=== PATIENT | male | born 1990 | race Caucasian/White ===

== ENCOUNTER 2017-01-22 22:27 | Emergency (ER) | payer MEDICAID ==
[~2017-01-22] VITALS: Ht 175.3 cm; Wt 77.1 kg
[~2017-01-22 22:27] MED LIST: AMOXIL500 MG PO; BACTRIM DS 8001 TAB PO; CEPHALEXIN MON500 MG PO; CIPRO 500MG TA500 MG PO; FLAGYL 500MG.500 MG PO; HYDROCODONE1 TABLET PO; IBU-8800 MG PO; KEFLEX 500MG.500 MG PO; LORTAB 5/500 501 TAB PO; MEDROL 4MG. DOSE4 MG PO; NOMEDS; NOMEDS *; PERCOCET 325 MG1 TA3 PO; PHENERGAN 25MG.25 M1 PO; PROVENTIL0.09 MG/AC IH; SULFAMETHOXAZOL1 TA6 PO; TRAMADOL 50MG T50 MG PO; ULTRAM50 MG PO; VICODIN 5/500 T1 TAB PO; ZITHROMAX TRI-500 MG PO
[2017-01-22 23:09] LABS: HEMOGLOBIN 14.1 g/dL (14.1-18.0); LYMPH # 1.3 K/mm3 (0.7-4.5); LYMPH % 17.6 % (10-50)
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
--- OUTSIDE RECORDS SUMMARY | 2017-01-22 23:20 | External Medical Summary Rpt ---
Author Author [employer], [employer] Organization [employer] Address Unknown Phone Unavailable
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
--- OUTSIDE RECORDS SUMMARY | 2017-01-22 23:20 | External Medical Summary Rpt ---
Demographics Preferred Language Senegalese Marital Status Unknown Taoist Affiliation Unknown Race Unknown Ethnic Group Unknown Author Author , Organization [employer] Address Unknown Phone Unavailable Purpose Continuity of Care Document - through 2016 Immunization No patient found.
--- OUTSIDE RECORDS SUMMARY | 2017-01-22 23:20 | External Medical Summary Rpt ---
Demographics Preferred Language Guamanian Marital Status Unknown Druze Affiliation Unknown Race Unknown Ethnic Group Unknown Author Author , Organization [employer] Address Unknown Phone Unavailable Purpose Continuity of Care Document - through 2016 Immunization No patient found.
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
[2017-01-22 23:29] LABS: STREP SCREEN (RAPID) NEGATIVE
--- NOTE | 2017-01-22 23:43 | Emergency Room Report ---
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 Y Clinical Suspician of Infection? Y Mental Status: 1 - Regular (Normal Baseline) Sepsis Risk:Severe Sepsis Risk Have you (or family members/close friends) recently traveled outside the [place]? N If Yes, where/when: Have you had exposure to infectious disease within the past month? N TB? Other? Specify: Source patient, RN notes reviewed, old records Exam Limitations no limitations Comment prod cough over the last few days with no rash Cardiac Chest Pain Chest pain indicative of cardiac No Timing/Duration this evening Severity moderate ALLERGIES Coded Allergies: No Known Allergies (01/22/17) Home Medications Reported Medications No Home Medications (NO HOME MEDICATIONS) History Medical History General CAD? No Angina: No NE: No Hypertension? No Hyperlipidemia? No CHF? No DVT? No PE? No COPD? No Asthma? Yes Anemia? No GERD? No Gastric ulcers? No GI Bleed? No Hernia? No Thyroid Problems? No Hypothyroidism? No CVA? No Seizures? No Diabetes? No Insulin Dependent: No Insulin Pump: No Home FSBS? No Renal Insuffiency? No End Stage Renal Disease? No UTI? No Stones? No BPH? No GB Disease: No Nephritic Syndrome? No Asplenia? No Hepatitis? No Sickle Cell Disease? No Arthritis? No Migraines? No Cataracts? No Glaucoma? No MRSA? Yes HIV? No TB? No Anxiety? No Depression? Yes Cancer? No Immunization Hx DT/Tetanus UNKNOWN Flu UNKNOWN Pneumonia NEVER Surgical Hx Previous Surgery?Y WISDOM TEETH HAND SURGERY I&D LEFT KNEE-LOCAL Family History Family Hx Diabetes Yes CAD Yes Hypertension Yes Hyperlipidemia No Cancer No TB No Social History Smoking Hx Smoker: Current Every Day Smoker Tobacco: Yes Type Cigarettes Packs/day < 1 Pack Alcohol Alcohol: Yes Drugs none Review of Systems All Other Systems Reviewed and Negative Constitutional denies fever Eyes denies drainage ENT throat pain. denies: ear discharge, epistaxis, throat swelling. Respiratory see HPI, cough, denies shortness of breath, denies wheezing Cardiovascular denies chest pain, denies syncope Gastrointestinal denies abdominal pain, denies diarrhea, denies vomiting Genitourinary denies: dysuria, frequency, hesitancy, hematuria. Musculoskeletal denies back pain, denies joint pain, denies joint swelling, denies neck pain Skin denies rash Psychiatric/Neurological denies headache, denies seizure Physical Exam Vital Signs Vital Signs Date Time Temp Pulse Resp B/P Pulse O2 O2 Flow FiO2 Ox Delivery Rate 01/22 2231 102.5 77 24 128/64 98 - WBC >12,000 or <4,000 or 10% bands? 2 or more SIRS Criteria Met? B/P:128/64 MAP:85 Creatinine >2.0? UA output<0.5ml/kg/hr for 2 hrs? Platelet count >100,000? Lactate >2.0mmol/1? INR >1.2 or PTT > than 60 sec? Evidence of Organ Dysfunction? Provider documented clinical suspician of infection? Y Sepsis Criteria Count: 2 Sepsis Risk: Severe Sepsis Risk General Appearance no apparent distress Eye Exam - bilateral eye PERRL, bilateral eye EOMI Ear, Nose, Throat pharyngeal erythema Neck supple Respiratory Status No: respiratory distress. Lung Sounds bilateral: lungs clear. 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 No Results/Orders Laboratory Tests 01/22/172247: Lactic Acid 0.4 01/22/172247: Sodium 138, Potassium 3.1 L, Chloride 102, Carbon Dioxide 26, BUN 18, Creatinine 1.1, Estimated Creat Clear 110, Estimated GFR (MDRD) 80, Glucose 112 H, Calcium 8.4 L, Total Bilirubin 0.4, AST 15, ALT 20, Alkaline Phosphatase 74, Total Protein 7.3, Albumin 3.9, Globulin 3.4 H, Albumin/Globulin Ratio 1.1, WBC 7.4, RBC 4.69, Hgb 14.1, Hct 41.8 L, MCV 89.1, RDW 12.6, Plt Count 115 L, MPV 7.9, Gran % 74.5, Gran # 5.5, Lymphocytes % 17.6, Monocytes % 6.9, Eosinophils % 0.3, Basophils % 0.7, Lymphocytes # 1.3, Monocytes # 0.5, Eosinophils # 0.0, Basophils # 0.1, PUBS MCHC 33.8, MCH 30.2 01/22/171: Influenza Type A Ag NOT DETECTED, Influenza Type B Ag NOT DETECTED Current Medication Orders Sig/Obed Start time Last Medication Dose Route Stop Time Status Admin Benzonatate 0 .STK-MED ONE 01/22 234 DC PO Acetaminophen/ 1 JAZMYNE ONCE ONE 01/22 234 DC Codeine Phosphate PO 01/22 2346 Benzonatate 100 MG ONCE ONE 01/22 2345 DC PO 01/22 2346 Ceftriaxone Sodium 1 GM ONCE ONE 01/22 2345 AC Sodium Chloride 50 ML IV 01/23 0014 Ketorolac 30 MG ONCE ONE 01/22 2345 DC Tromethamine IV 01/22 2346 Levofloxacin 500 MG ONCE ONE 01/22 2345 DC PO 01/22 2346 Methylprednisolone 125 MG ONCE ONE 01/22 2345 DC Sodium Succinate IV 01/22 2346 Sodium Chloride 1,000 ML .Q1H1M 01/22 2300 AC / IV 01/23 0000 2257 Sodium Chloride 10 ML PRN PRN 01/22 2300 AC IV 01/23 2254 Ibuprofen 800 MG ONCE ONE 01/22 2245 DC 01/22 PO 01/22 2246 2256 Ibuprofen 0 .STK-MED ONE 01/22 224 DC PO Sodium Chloride 10 ML PRN PRN 01/22 2245 AC IV 01/23 2239 Sodium Chloride 1,000 ML .STK-MED ONE 01/22 224 DC IV Orders Procedure Date/time Status CHEST(2 VIEWS-NOT PORTABLE) 01/22 2241 Active IV SALINE LOCK 01/22 2241 Active CULTURE, THROAT 01/22 2241 Active CULTURE, BLOOD 01/22 2241 Active STREP SCREEN THROAT 01/22 2241 Complete LACTIC ACID 01/22 2241 Complete INFLUENZA A&B ANTIGENS 01/22 2241 Complete CBC WITH AUTO DIFF 01/22 2241 Complete CHEM 12 PROFILE 07/04 2241 Complete XRAY/CT/US XRAY/CT/US XRAY chest XR interpretation by reviewed by me Xray Results abnormal (rml changes) Departure Departure Time of Disposition 2341 Disposition DC Home or Self Care(routine) Clinical Impression Primary Impression: CAP (community acquired pneumonia) Condition STABLE Patient Instructions DI for Cough -- Adult Additional Instructions fluids and use meds and see pcp for follow up Discharge Counseling Counseled pt/family regarding diagnosis, test results, medications/RX, follow up needs Prescriptions Current Visit Scripts BENZONATATE (Benzonatate) 100 MG PO TID #15 CAP Prednisone (Prednisone 20MG) 20 MG PO BID #10 TAB Azithromycin (Zithromycin (Z-JAZMYNE) 250MG Tab) 250 MG PO DAILY #6 TAB TAKE TWO (2) TABLETS ON DAY 1, THEN ONE (1) TABLET DAY #2 THRU #5 ED Critical Care Critical Care No at 2341
[2017-01-22] MEDS ORDERED: PREDNISONE 20MG20 MG PO (23:48)
[2017-01-22] MEDS ORDERED: ZITHROMAX Z PA250 MG PO (23:48)
[2017-01-22] MEDS ORDERED: TESSALON PERLE100 MG PO (23:48)
[2017-01-23 00:05] VITALS: BP 125/53
--- NOTE | 2017-01-23 07:26 | RADIOLOGY REPORT PS360 ---
CHEST(2 VIEWS-NOT PORTABLE) HISTORY: Cough and bodyaches C/O COUGH AND BODY ACHES ORDERING PHYSICIAN: Sergey Chawla MD PATIENT AGE: 26 years COMPARISON: 04/03/2015 FINDINGS: The cardiomediastinal silhouette and pulmonary vascularity are within normal limits. The lungs are clear without infiltrates, suspicious nodules, or pleural effusions. No acute bony abnormalities. There is evidence of old granulomatous disease IMPRESSION: 1. No acute finding with no change. 2. Old granulomatous disease
== END 2017-01-23 00:06 | disposition home or self-care (01) ==
LOC: ER 22:27
PROVIDERS: Emergency Medicine
DX: J18.9 Pneumonia, unspecified organism (principal); Z72.0 Tobacco use